=== PATIENT | male | born 1945 | race Caucasian/White ===

== ENCOUNTER 2019-02-25 08:42 | Day surgery (SDC) | payer MEDICARE ==
[~2019-02-25 08:42] MED LIST: Acetaminophen TAB* 325 MG PO PRN; Buffered Lidocaine 1% SYRIN* 1 ML/SYRINGE INTRADERM ONE
[2019-02-25] MEDS ORDERED: Midazolam* 1 MG/ML 5 ML VIAL (5 MG) ONE (10:35)
[2019-02-25 11:36] VITALS: BP 152/89
--- NOTE | 2019-02-25 12:03 | OP ---
OPERATIVE NOTE: DATE OF OPERATION: 02/25/19 DATE OF : 43 SURGEON: Jean-Claude Staton M.D. PREOPERATIVE DIAGNOSIS: Cataract, right eye. POSTOPERATIVE DIAGNOSIS: Cataract, right eye. OPERATIVE PROCEDURE: Extracapsular cataract extraction with intraocular lens implant, right eye. PROCEDURE: The patient was brought to the operating room after being given 1/2% Alcaine with epineph rine drops in the preoperative area. The eye was prepped and draped in the usual sterile fashion. S terile drape and eyelid speculum were placed. Again, topical 1/2% Alcaine with epinephrine was given . A paracentesis incision was made at the 9 o'clock position with the No. 75 blade. Clear cornea in cision 2.2 x 2.2 mm was created at the 12 o'clock position starting at the anterior limbus using the 2.2 mm keratome. The anterior chamber was irrigated with 0.4 mL of 1% non-preservative intracameral lidocaine and filled with DisCoVisc. A capsulorrhexis was completed using the cystotome and the Utra ta forceps. Hydrodissection was performed with balanced salt solution. The lens nucleus was removed with the Phacoemulsification handpiece without incident. Cortex was removed with the irrigation-aspi ration handpiece. The capsular bag was re-inflated using DisCoVisc and an [id number] 20 implant was inse rted with the shooter. The irrigation-aspiration handpiece was used to remove all residual DisCoVisc . The eye was refilled with balanced salt solution and the wound checked and found to be watertight. Topical Maxitrol drops were given. [id number]/[facility] #: [id number]
[2019-02-25] MEDS ORDERED: Ketorolac 0.5% OPHTH (NF) 0.5 % 5 ML BTL ONE (12:19)
[2019-02-25] MEDS ORDERED: Lidocaine 2% w/ EPI 1:200,000* 20 ML VIAL ONE (12:19)
[2019-02-25] MEDS ORDERED: Phenylephrine OPHTH SOL 2.5%* 2 ML ONE (12:19)
[2019-02-25] MEDS ORDERED: Proparacaine 0.5% OPHTH.SOL* 15 ML BTL ONE (12:19)
[2019-02-25] MEDS ORDERED: Cyclopentolate 1% OPTH.SOL* 2 ML BTL ONE (12:19)
[2019-02-25] MEDS ORDERED: Lidocaine 1% MPF ** 5 ML VIAL ONE (12:19)
[2019-02-25] MEDS ORDERED: acetaZOLAMIDE TAB* 250 MG ONE (12:19)
[2019-02-25] MEDS ORDERED: Povidone Iodine 5% OPTH* 30 ML BTL ONE (12:19)
[2019-02-25] MEDS ORDERED: Neomycin/Polymy/Dex OPTH.SUSP* MAXITROL 0.1% 5 ML ONE (12:19)
== END 2019-02-25 11:41 | disposition home or self-care (01) ==
LOC: OREAST 08:42
PROVIDERS: ATTEND Specialist
DX: H25.811 Combined forms of age-related cataract, right eye (principal); H33.8 Other retinal detachments; H43.813 Vitreous degeneration, bilateral; E11.9 Type 2 diabetes mellitus without complications; Z79.84 Long term (current) use of oral hypoglycemic drugs; E78.5 Hyperlipidemia, unspecified; I10 Essential (primary) hypertension; K86.2 Cyst of pancreas; Z87.891 Personal history of nicotine dependence; I25.10 Atherosclerotic heart disease of native coronary artery without angina pectoris
CPT/HCPCS: A9270-GY; J2250; V2632

== ENCOUNTER 2019-03-04 10:59 | Day surgery (SDC) | payer MEDICARE ==
[2019-03-04] MEDS ORDERED: Midazolam* 1 MG/ML 5 ML VIAL (5 MG) ONE (12:59)
--- NOTE | 2019-03-04 14:09 | OP ---
OPERATIVE NOTE: DATE OF OPERATION: 03/04/19 DATE OF : 43 SURGEON: Jean-Claude Staton M.D. PREOPERATIVE DIAGNOSIS: Cataract, left eye. POSTOPERATIVE DIAGNOSIS: Cataract, left eye. OPERATIVE PROCEDURE: Extracapsular cataract extraction with intraocular lens implant left eye. PROCEDURE: The patient was brought to the operating room after being given 1/2% Alcaine with epineph rine drops in the preoperative area. The eye was prepped and draped in the usual sterile fashion. S terile drape and eyelid speculum were placed. Again, topical 1/2% Alcaine with epinephrine was given . A paracentesis incision was made at the 3 o'clock position with the No.75 blade. Clear cornea inc ision 2.2 x 2.2-mm was created at the 6 o'clock position starting at the anterior limbus using the 2. 2-mm keratome. The anterior chamber was irrigated with 0.4 mL of 1% non-preservative intracameral li docaine and filled with DisCoVisc. A capsulorrhexis was completed using the cystotome and the Utrata forceps. Hydrodissection was performed with balanced salt solution. The lens nucleus was removed wi th the Phacoemulsification handpiece without incident. Cortex was removed with the irrigation-aspira tion handpiece. The capsular bag was re-inflated using DisCoVisc and an [id number] 19 implant was insert ed with the shooter. The irrigation-aspiration handpiece was used to remove all residual DisCoVisc. The eye was refilled with balanced salt solution and the wound checked and found to be watertight. Topical Maxitrol drops were given. [id number]/[facility] #: [id number]
[2019-03-04] MEDS ORDERED: Povidone Iodine 5% OPTH* 30 ML BTL ONE (14:13)
[2019-03-04] MEDS ORDERED: Ketorolac 0.5% OPHTH (NF) 0.5 % 5 ML BTL ONE (14:13)
[2019-03-04] MEDS ORDERED: Proparacaine 0.5% OPHTH.SOL* 15 ML BTL ONE (14:13)
[2019-03-04] MEDS ORDERED: Lidocaine 1% MPF ** 5 ML VIAL ONE (14:13)
[2019-03-04] MEDS ORDERED: Lidocaine 2% w/ EPI 1:200,000* 20 ML VIAL ONE (14:13)
[2019-03-04] MEDS ORDERED: Cyclopentolate 1% OPTH.SOL* 2 ML BTL ONE (14:13)
[2019-03-04] MEDS ORDERED: Phenylephrine OPHTH SOL 2.5%* 2 ML ONE (14:13)
[2019-03-04] MEDS ORDERED: acetaZOLAMIDE TAB* 250 MG ONE (14:13)
[2019-03-04] MEDS ORDERED: Neomycin/Polymy/Dex OPTH.SUSP* MAXITROL 0.1% 5 ML ONE (14:13)
[2019-03-04 14:48] VITALS: BP 164/84
== END 2019-03-04 14:05 | disposition home or self-care (01) ==
LOC: OREAST 10:59
PROVIDERS: ATTEND Specialist
DX: H25.812 Combined forms of age-related cataract, left eye (principal); H33.8 Other retinal detachments; H43.813 Vitreous degeneration, bilateral; I10 Essential (primary) hypertension; E78.00 Pure hypercholesterolemia, unspecified; N40.1 Benign prostatic hyperplasia with lower urinary tract symptoms; N13.8 Other obstructive and reflux uropathy; E78.5 Hyperlipidemia, unspecified
CPT/HCPCS: A9270-GY; J2250; V2632

== ENCOUNTER 2021-03-14 14:59 | Inpatient (IN) ==
[2021-03-14] MEDS ORDERED: Iodixanol (CONTRAST) 320 MG/ML 100 ML SDV IV ONE (15:31)
[2021-03-14 15:34] LABS: ABS Lymphocytes 0.7 10^3/ul (1.0-4.8); ABS Monocytes 0.7 10^3/ul (0-0.8); ABS Neutrophils 4.5 10^3/ul (1.5-7.7); Eosinophil % 0.2 %; Hematocrit 42 % (42-52); Hemoglobin 14.6 g/dL (14.0-18.0); Lymphocyte % 11.8 %; Mean Corpuscular HGB Conc 35 g/dL (31-36); Mean Corpuscular Hemoglobin 31 pg (27-31); Mean Corpuscular Volume 89 fL (80-94); Mean Platelet Volume 7.1 fL (7.4-10.4); Nucleated Red Blood Cells % 0.1; Platelet Count 194 10^3/uL (150-450); Red Blood Count 4.73 10^6 /uL (4.18-5.48); Red Cell Distribution Width 14 % (10-15); White Blood Count 5.9 10^3/uL (3.5-10.8)
[2021-03-14 15:54] LABS: Troponin I 0.02 ng/mL (<0.03)
[2021-03-14 15:58] LABS: Blood Urea Nitrogen 13 mg/dL (6-24); Chloride 99 mmol/L (101-111); Glucose 143 mg/dL (70-100); Potassium 3.7 mmol/L (3.5-5.0); Sodium 132 mmol/L (135-145)
[2021-03-14 16:31] LABS: Anion Gap 11 mmol/L (2-11); CO2 Carbon Dioxide 22 mmol/L (22-32); EGFR African American 83.1 (>60); EGFR Non-African American 68.7 (>60); Magnesium 1.5 mg/dL (1.9-2.7)
[2021-03-14] MEDS ORDERED: Magnesium Sulfate 2 gm BAG 2 GM/50 ML BAG IVPB ONE (16:37)
[2021-03-14 21:04] LABS: C Reactive Protein 56.67 mg/L (<8.01)
[2021-03-14] MEDS ORDERED: Heparin 5000 UNITS/ML 1 mL VIAL SUBCUT SCH (22:00)
[2021-03-14 22:26] LABS: Erythrocyte Sed Rate 35 mm/Hr (0-19)
[2021-03-14] MEDS: Enoxaparin 40 MG/0.4 ML SYR SUBCUT SCH (22:42)
[2021-03-14] MEDS ORDERED: Dextrose 50% Syringe 50 ml 25 GM/50 ML SYRINGE IV PUSH PRN (23:17)
[2021-03-15] MEDS ORDERED: Senna TAB 8.6 mg TAB PO PRN (00:32)
[2021-03-15] MEDS ORDERED: Polyethylene Glycol 3350 17 GM PACKET PO PRN (00:32)
[2021-03-15 00:34] LABS: Folate > 20.00 ng/mL (5.90-24.80)
[2021-03-15 00:35] LABS: Vitamin B12 331 pg/mL (180-914)
[2021-03-15 00:38] LABS: Urine Creatinine Concentration 192.51 mg/dL
[2021-03-15 05:09] LABS: ABS Lymphocytes 0.9 10^3/ul (1.0-4.8); ABS Monocytes 0.9 10^3/ul (0-0.8); Eosinophil % 0.2 %; Hematocrit 39 % (42-52); Hemoglobin 13.7 g/dL (14.0-18.0); Lymphocyte % 15.2 %; Mean Corpuscular HGB Conc 35 g/dL (31-36); Mean Corpuscular Hemoglobin 31 pg (27-31); Mean Corpuscular Volume 88 fL (80-94); Mean Platelet Volume 7.2 fL (7.4-10.4); Nucleated Red Blood Cells % 0.1; Platelet Count 173 10^3/uL (150-450); Red Blood Count 4.45 10^6 /uL (4.18-5.48); Red Cell Distribution Width 13 % (10-15); White Blood Count 5.8 10^3/uL (3.5-10.8)
[2021-03-15 05:15] LABS: INR 1.31 (0.86-1.15)
[2021-03-15 05:28] LABS: Albumin 3.6 g/dL (3.2-5.2); Albumin/Globulin Ratio 1.3 (1-3); Calcium 8.5 mg/dL (8.6-10.3); Direct Bilirubin 0.4 mg/dL (0.03-0.18); EGFR Non-African American 74.4 (>60); Globulin 2.7 g/dL (2-4); HDL Cholesterol 32.2 mg/dL; Indirect Bilirubin 1.4 mg/dL (0.3-1.0); Potassium 3.4 mmol/L (3.5-5.0); Total Bilirubin 1.8 mg/dL (0.2-1.0); Total Protein 6.3 g/dL (6.4-8.9)
[2021-03-15 06:00] LABS: TSH Ultra Thyroid Stim Horm 2.06 mcIU/mL (0.34-5.60)
[2021-03-15] MEDS: Potassium Chlor 20 meq TAB.ER PO SCH ×4 (06:05→19:53)
[2021-03-15] MEDS: Aspirin EC 81 mg TAB.EC (enteric coated) PO SCH (08:29)
[2021-03-15] MEDS ORDERED: Potassium Chlor 20 meq TAB.ER PO ONE (08:36)
[2021-03-15 11:34] LABS: Urine Appearance Clear; Urine Bilirubin Negative (Negative); Urine Blood 3+ (Negative); Urine Color Yellow; Urine Glucose Negative (Negative); Urine Ketones Trace (Negative); Urine Nitrite Negative (Negative); Urine Protein 1+(30 mg/dL) (Negative); Urine Specific Gravity 1.021 (1.002-1.030); Urine Urobilinogen Negative (Negative)
[2021-03-15 11:40] LABS: Urine Bacteria Absent (Absent); Urine Red Blood Cell 3+(>10/hpf) (Absent); Urine White Blood Cell Trace(0-5/hpf) (Absent)
[2021-03-15] MEDS: Enoxaparin 40 MG/0.4 ML SYR SUBCUT SCH (22:13)
[2021-03-16 03:55] LABS: LDH 214 U/L (140-271)
[2021-03-16 05:29] LABS: ABS Eosinophils 0.1 10^3/ul (0-0.6); ABS Lymphocytes 1.2 10^3/ul (1.0-4.8); ABS Monocytes 1.1 10^3/ul (0-0.8); ABS Neutrophils 2.8 10^3/ul (1.5-7.7); Eosinophil % 2.1 %; Hematocrit 40 % (42-52); Hemoglobin 13.8 g/dL (14.0-18.0); Lymphocyte % 22.5 %; Mean Corpuscular HGB Conc 35 g/dL (31-36); Mean Corpuscular Hemoglobin 31 pg (27-31); Mean Corpuscular Volume 89 fL (80-94); Mean Platelet Volume 7.4 fL (7.4-10.4); Nucleated Red Blood Cells % 0.2; Platelet Count 167 10^3/uL (150-450); Red Blood Count 4.49 10^6 /uL (4.18-5.48); Red Cell Distribution Width 14 % (10-15); White Blood Count 5.3 10^3/uL (3.5-10.8)
[2021-03-16 05:46] LABS: Albumin 3.6 g/dL (3.2-5.2); Albumin/Globulin Ratio 1.1 (1-3); Calcium 8.7 mg/dL (8.6-10.3); EGFR Non-African American 69.4 (>60); Globulin 3.2 g/dL (2-4); Potassium 3.7 mmol/L (3.5-5.0); Total Bilirubin 1.5 mg/dL (0.2-1.0); Total Protein 6.8 g/dL (6.4-8.9)
[2021-03-16] MEDS: Aspirin EC 81 mg TAB.EC (enteric coated) PO SCH (08:14)
[2021-03-16 08:27] LABS: Phosphorus 3.2 mg/dL (2.5-5.0)
[2021-03-16] MEDS ORDERED: Iodixanol (CONTRAST) 320 MG/ML 100 ML SDV IV ONE (19:52)
[2021-03-16] MEDS: Enoxaparin 40 MG/0.4 ML SYR SUBCUT SCH (22:41)
[2021-03-17 07:43] LABS: ABS Eosinophils 0.2 10^3/ul (0-0.6); ABS Lymphocytes 1.1 10^3/ul (1.0-4.8); ABS Neutrophils 3.1 10^3/ul (1.5-7.7); Eosinophil % 4.6 %; Hematocrit 39 % (42-52); Hemoglobin 13.8 g/dL (14.0-18.0); Lymphocyte % 20.3 %; Mean Corpuscular HGB Conc 35 g/dL (31-36); Mean Corpuscular Hemoglobin 31 pg (27-31); Mean Corpuscular Volume 88 fL (80-94); Mean Platelet Volume 7.3 fL (7.4-10.4); Platelet Count 186 10^3/uL (150-450); Red Blood Count 4.45 10^6 /uL (4.18-5.48); Red Cell Distribution Width 13 % (10-15); White Blood Count 5.4 10^3/uL (3.5-10.8)
[2021-03-17] MEDS: Aspirin EC 81 mg TAB.EC (enteric coated) PO SCH (08:53)
[2021-03-17] MEDS ORDERED: Gadoteridol (CONTRAST) 279.3 MG/ML 10 ML IV ONE (12:49)
[2021-03-17] MEDS: Enoxaparin 40 MG/0.4 ML SYR SUBCUT SCH (20:35)
[2021-03-18 06:52] LABS: Calcium 9.1 mg/dL (8.6-10.3); EGFR African American 87.9 (>60); EGFR Non-African American 72.6 (>60); Potassium 3.8 mmol/L (3.5-5.0)
[2021-03-18] MEDS: Aspirin EC 81 mg TAB.EC (enteric coated) PO SCH (08:11)
[2021-03-18 12:10] VITALS: BP 144/78
[2021-03-21 09:47] LABS: Albumin 2.6 g/dL (3.4-4.7); Albumin/Globulin Ratio 0.81; Gamma Globulin 1.1 g/dL (0.6-1.6); Total Protein(PEP) 5.9 g/dL (6.3 - 7.9)
== END 2021-03-18 14:46 | disposition home health service (06) | DRG 552 ==
LOC: ED 14:59 → MEDTELE 14:59
PROVIDERS: ADMIT Internal Medicine; ATTEND Hospitalist